=== PATIENT | male | born 1975 | race Caucasian/White ===

== ENCOUNTER 2019-01-02 13:14 | Emergency (ER) | payer OTHER, MEDICAID, MEDICARE, SELFPAY ==
[2019-01-02 13:13] VITALS: BP 156/96; PULSE 83; RESP 18; O2SAT 96
[2019-01-02 13:15] VITALS: BP 157/96; PULSE 77; RESP 18; TEMP 36.9; O2SAT 97
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
[2019-01-02 14:27] LABS: ALB/GLOB Ratio 0.9 RATIO (0.9-2.4); AST(SGOT) 23 U/L (15-37); Alanine Aminotransfer ALT/SGPT 37 U/L (16-61); Albumin, Serum 3.5 g/dL (3.2-5.0); Alkaline Phosphatase 106 U/L (45-117); Anion Gap 4 (5-15); BUN 25 mg/dL (7-18); BUN/Creat Ratio 19.1 RATIO (10-20); Calcium,Total 8.7 mg/dL (8.5-10.1); Chloride 104 mmol/L (98-107); Creatinine, Serum 1.31 mg/dL (0.70-1.30); EST Glomerular Filtration Rate 63 mL/min (>60); Est Glom Filt Rate - Afr Amer 76 mL/min (>60); Estimated Creatinine Clearance 93.38 ml/min; Glucose 91 mg/dL (74-106); Lipase 69 U/L (73-393); Potassium 3.9 mmol/L (3.5-5.1); Protein, Total 7.5 g/dL (6.4-8.2); Sodium Level 137 mmol/L (136-145)
[2019-01-02 15:13] VITALS: BP 158/93; PULSE 80; RESP 18; O2SAT 97
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
== END 2019-01-02 16:11 | disposition home or self-care (01) ==
LOC: ED 14:27
PROVIDERS: Emergency Provider Emergency Medicine
DX: R10.9 Unspecified abdominal pain (principal); M54.2 Cervicalgia; V89.2XXA Person injured in unspecified motor-vehicle accident, traffic, initial encounter; Y93.9 Activity, unspecified; Y92.9 Unspecified place or not applicable; Z98.890 Other specified postprocedural states
CPT/HCPCS: 74177; 80053; 83690; 99285; Q9967; A4216